=== PATIENT | male | born 1940 | race Caucasian/White ===

== ENCOUNTER 2016-07-08 06:50 | Day surgery (SDC) | payer MEDICARE, OTHER ==
[~2016-07-08 06:50] MED LIST: KETOROLAC TROMETHAMINE 0.45% 4 DROP/0.4 ML DROPERETTE OS PRN
[2016-07-08] MEDS: CYCLOPENTOLATE 0.2%/PHENYLEPHRINE 1% OPH SOLN 2 ML OS PRN ×3 (07:10→07:33)
[2016-07-08] MEDS: BESIFLOXACIN HCL 0.6% OPH SUSP 5 ML BOTTLE OS PRN ×3 (07:10→08:37)
[2016-07-08] MEDS: TROPICAMIDE 1% OPH SOLN 3 ML OS PRN ×3 (07:10→07:33)
[2016-07-08] MEDS: TETRACAINE HCL 0.5% OPH SOLN 2 ML OS PRN ×3 (07:10→08:08)
[2016-07-08] MEDS ORDERED: CHONDR SU A NA/HYALUR INTRAOC KIT (SURGICARE) ONE (07:14)
[2016-07-08] MEDS ORDERED: EPINEPHRINE INJ/PF 1 MG/1 ML AMPULE ONE (07:14)
[2016-07-08] MEDS ORDERED: LIDOCAINE 1% INJ-PF (10 MG/ML) 30 ML SDV ONE (07:14)
[2016-07-08] MEDS ORDERED: FENTANYL CITRATE INJ/PF 100 MCG/2 ML AMPUL ONE (07:18)
[2016-07-08] MEDS ORDERED: MIDAZOLAM 2 MG/2 ML INJ ONE ×2 (07:18→08:13)
--- NOTE | 2016-07-08 16:38 | [facility] OPERATIVE REPORT E ---
[facility] Oper[facility] Report NAME: BILL CARTER AGE: 75Y DATE OF SURGERY: 07/08/2016 ROOM: PREOPERATIVE DIAGNOSIS: CATARACT, LEFT EYE. POSTOPERATIVE DIAGNOSIS: CATARACT, LEFT EYE. OPERATION: Cataract extraction with insertion of a Toric intraocular lens implant of the left eye. SURGEON: CAROL PERRY M.D. ANESTHESIA: Topical. PROCEDURE: After obtaining appropriate consent, the patient's left eye was prepped and draped in sterile fashion as well as the surgeon in a sterile manner and cataract surgery was started. First a paracentesis blade was used to make a small side-port incision. Viscoelastic was used to inflate the anterior chamber. Next a 2.4 mm incision was made with the paracentesis blade. A continuous capsulorrhexis incision was made using a cystotome and Utrata forceps. Following this hydrodissection was carried out to make the lens fully loose and mobile and it was rotated 90 degrees. Following this, a bqpgdv-sov-jcqyszs technique was used to phacoemulsify the lens with a CDE of 29.98. The remaining cortex was removed with irrigation/aspiration. Provisc was instilled into the capsular bag to inflate the bag. A [id number], 22.0 diopter lens rotated to 180 [address] was [address]. The remaining viscoelastic material was removed with irrigation/aspiration. Following this, a 10-0 nylon suture was used to close the incision and it was found to be watertight. Vigamox was instilled in the eye and a protective shield was placed over the eye. The patient returned to the postoperative recovery in stable condition. DICTATING PHYSICIAN: CAROL PERRY M.D. [id number] PHY#: [id number] ID: [id number] JOB#: [id number] ACCT: [id number] cc:CAROL PERRY M.D. >
--- NOTE | 2016-07-08 16:39 | DISCHARGE SUMMARY E ---
Discharge Summary NAME: BILL CARTER : 1940 AGE: 75Y ADMITTED: 07/08/2016 DISCHARGED: 07/08/2016 This is a 75-year-old male who underwent cataract extraction of the left eye with insertion of a Toric intraocular lens at 180 degrees. DIAGNOSIS: Cataract, left eye. The patient underwent surgery because he having trouble seeing words on TV. DISCHARGE INSTRUCTIONS: He is to be on a regular diet. No bending at his waist, no heavy lifting. He is to use Besivance, Ilevro, and Durezol at 3:00 p.m. and 8:00 p.m., and sleep with a rigid shield. I will see him for his one day postoperative tomorrow. DICTATING PHYSICIAN: CAROL PERRY M.D. [id number] PHY#: [id number] ID: [id number] JOB#: [id number] ACCT: [id number] cc:CAROL PERRY M.D. >
== END 2016-07-08 09:25 | disposition home or self-care (01) ==
LOC: SC 06:50
PROVIDERS: ATTEND Internal Medicine
PROC: 08RK3JZ Replacement of Left Lens with Synthetic Substitute, Percutaneous Approach (ICD-10-PCS; principal; 2016-07-08 08:00)
DX: H25.13 Age-related nuclear cataract, bilateral (principal); H57.03 Miosis; H04.123 Dry eye syndrome of bilateral lacrimal glands; H02.032 Senile entropion of right lower eyelid; H43.813 Vitreous degeneration, bilateral; I10 Essential (primary) hypertension; Z87.891 Personal history of nicotine dependence; Z88.5 Allergy status to narcotic agent; Z79.899 Other long term (current) drug therapy; Z85.46 Personal history of malignant neoplasm of prostate
CPT/HCPCS: 66984; V2787; J2250; J3490 ×2; A9270; J0171; J3010; 142

== ENCOUNTER 2016-07-29 10:06 | Day surgery (SDC) | payer MEDICARE, OTHER ==
[~2016-07-29 10:06] MED LIST changes: +KETOROLAC TROMETHAMINE 0.45% 4 DROP/0.4 ML DROPERETTE OD PRN; -KETOROLAC TROMETHAMINE 0.45% 4 DROP/0.4 ML DROPERETTE OS PRN
[2016-07-29] MEDS ORDERED: PHENYLEPHRINE/KETOROLAC 1%-0.3% 4 ML VIAL ONE (10:51)
[2016-07-29] MEDS: TETRACAINE HCL 0.5% OPH SOLN 2 ML OD PRN ×3 (10:51→11:28)
[2016-07-29] MEDS ORDERED: LIDOCAINE 1% INJ-PF (10 MG/ML) 30 ML SDV ONE (10:51)
[2016-07-29] MEDS: TROPICAMIDE 1% OPH SOLN 3 ML OD PRN ×3 (10:52→11:13)
[2016-07-29] MEDS: CYCLOPENTOLATE 0.2%/PHENYLEPHRINE 1% OPH SOLN 2 ML OD PRN ×3 (10:52→11:14)
[2016-07-29] MEDS: BESIFLOXACIN HCL 0.6% OPH SUSP 5 ML BOTTLE OD PRN ×4 (10:53→12:02)
[2016-07-29] MEDS ORDERED: MIDAZOLAM 2 MG/2 ML INJ ONE ×2 (11:07→11:37)
[2016-07-29] MEDS ORDERED: FENTANYL CITRATE INJ/PF 100 MCG/2 ML AMPUL ONE (11:07)
[2016-07-29] MEDS: CHONDR SU A NA/HYALUR INTRAOC KIT (SURGICARE) ONE ×2 (11:51)
--- NOTE | 2016-07-29 19:48 | [facility] OPERATIVE REPORT E ---
[facility] NAME: BILL CARTER AGE: 75Y DATE OF SURGERY: 07/29/2016 ROOM: PREOPERATIVE DIAGNOSIS: CATARACT, RIGHT EYE. POSTOPERATIVE DIAGNOSIS: CATARACT, RIGHT EYE. OPERATION: Cataract extraction with insertion of a Toric intraocular lens implant of the right eye. SURGEON: CAROL PERRY M.D. ANESTHESIA: Topical. PROCEDURE: After obtaining appropriate consent, the patient's right eye was prepped and draped in sterile fashion as well as the surgeon in a sterile manner and cataract surgery was started. First a paracentesis blade was used to make a small side-port incision. Viscoelastic was used to inflate the anterior chamber. Next a 2.4 mm incision was made with the paracentesis blade. A continuous capsulorrhexis incision was made using a cystotome and Utrata forceps. Following this hydrodissection was carried out to make the lens fully loose and mobile and it was rotated 90 degrees. Following this, a mmvohi-ntv-ynalztm technique was used to phacoemulsify the lens with a CDE of 21.39. The remaining cortex was removed with irrigation/aspiration. Provisc was instilled into the capsular bag to inflate the bag. A SN6AT4, 21.0 diopter lens rotated to 9 [address] was [address]. The remaining viscoelastic material was removed with irrigation/aspiration. Following this, a 10-0 nylon suture was used to close the incision and it was found to be watertight. Vigamox was instilled in the eye and a protective shield was placed over the eye. The patient returned to the postoperative recovery in stable condition. DICTATING PHYSICIAN: CAROL PERRY M.D. [id number] 1941 PHY#: [id number] ID: [id number] JOB#: [id number] ACCT: [id number] cc:CAROL PERRY M.D. >
--- NOTE | 2016-07-29 19:49 | DISCHARGE SUMMARY E ---
Discharge Summary NAME: BILL CARTER : 1940 AGE: 75Y ADMITTED: 07/29/2016 DISCHARGED: 07/29/2016 This is a 75-year-old male who underwent cataract extraction of the right eye with insertion of a Toric intraocular lens. DIAGNOSIS: Cataract, right eye. He underwent surgery because he was having difficulty reading, driving, and watching TV. DISCHARGE INSTRUCTIONS: He is to be on a regular diet. No bending at his waist, no heavy lifting. He is to use Besivance, Ilevro, and Durezol at 3:00 p.m. and 8:00 p.m., and sleep with a rigid shield. I will see him for his one day postoperative tomorrow. DICTATING PHYSICIAN: CAROL PERRY M.D. [id number] 1943 PHY#: [id number] ID: [id number] JOB#: [id number] ACCT: [id number] cc:CAROL PERRY M.D. >
== END 2016-07-29 12:48 | disposition home or self-care (01) ==
LOC: SC 10:06
PROVIDERS: ATTEND Internal Medicine
PROC: 08RJ3JZ Replacement of Right Lens with Synthetic Substitute, Percutaneous Approach (ICD-10-PCS; principal; 2016-07-29 11:30)
DX: H25.11 Age-related nuclear cataract, right eye (principal); H57.03 Miosis; Z96.1 Presence of intraocular lens; I10 Essential (primary) hypertension; Z79.899 Other long term (current) drug therapy; Z88.5 Allergy status to narcotic agent
CPT/HCPCS: 66984; V2632; J2250; J3490 ×2; A9270; J3010; C9447; 142

== ENCOUNTER 2016-10-14 11:43 | Day surgery (SDC) | payer MEDICARE, OTHER ==
[~2016-10-14 11:43] MED LIST changes: +BESIFLOXACIN HCL 0.6% OPH SUSP 5 ML BOTTLE OS PRN; +CHONDR SU A NA/HYALUR INTRAOC KIT (SURGICARE) ONE; +CYCLOPENTOLATE 0.2%/PHENYLEPHRINE 1% OPH SOLN 2 ML OS PRN; +EPINEPHRINE INJ/PF 1 MG/1 ML AMPULE ONE; -KETOROLAC TROMETHAMINE 0.45% 4 DROP/0.4 ML DROPERETTE OD PRN; +KETOROLAC TROMETHAMINE 0.45% 4 DROP/0.4 ML DROPERETTE OS PRN; +LIDOCAINE 1% INJ-PF (10 MG/ML) 30 ML SDV ONE; +TETRACAINE HCL 0.5% OPH SOLN 2 ML OS PRN; +TROPICAMIDE 1% OPH SOLN 3 ML OS PRN
[2016-10-14] MEDS: CYCLOPENTOLATE 0.2%/PHENYLEPHRINE 1% OPH SOLN 2 ML OS PRN ×3 (11:58→12:18)
[2016-10-14] MEDS: BESIFLOXACIN HCL 0.6% OPH SUSP 5 ML BOTTLE OS PRN ×3 (11:58→12:56)
[2016-10-14] MEDS: TROPICAMIDE 1% OPH SOLN 3 ML OS PRN ×3 (11:58→12:18)
[2016-10-14] MEDS: TETRACAINE HCL 0.5% OPH SOLN 2 ML OS PRN ×3 (11:59→12:42)
[2016-10-14] MEDS ORDERED: MIDAZOLAM 2 MG/2 ML INJ ONE (12:19)
--- NOTE | 2016-10-14 20:47 | [facility] OPERATIVE REPORT E ---
[facility] Operative Report NAME: BILL CARTER AGE: 76Y DATE OF SURGERY: 10/14/2016 ROOM: PREOPERATIVE DIAGNOSIS: Retained lens fragment of left eye. POSTOPERATIVE DIAGNOSIS: Retained lens fragment of left eye. OPERATION: Removal of lens fragment of left eye. SURGEON: CAROL PERRY M.D. ANESTHESIA: Topical. BLOOD LOSS: Less than 2 mL. DESCRIPTION OF OPERATIVE REPORT: After obtaining appropriate informed consent, the left eye was prepped and draped in sterile fashion. Following this, a 1.2 mm keratome was used to make a paracentesis. Viscoelastic was inserted into the anterior chamber. A 2.4 mm keratome was used to reopen the temporal incision, being careful to follow the same tract. Following this, irrigation and aspiration were used to find the lens fragment that was in the inferior angle. This was removed with irrigation and aspiration. The remaining viscoelastic was then removed. The lens was still in excellent position, and the wound was Maycol negative. Besivance was instilled into the eye, and a rigid shield was placed over the eye. The patient woke up in postoperative recovery in stable condition. DICTATING PHYSICIAN: CAROL PERRY M.D. [id number] 1938 PHY#: [id number] ID: [id number] JOB#: [id number] ACCT: [id number] cc:CAROL PERRY M.D. >
--- NOTE | 2016-10-14 20:50 | DISCHARGE SUMMARY E ---
Discharge Summary NAME: BILL CARTER : 1940 AGE: 76Y ADMITTED: 10/14/2016 DISCHARGED: 10/14/2016 This is a 76-year-old male who had a retained lens fragment of the left eye. 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 DISCHARGE INSTRUCTIONS: He is to be on a regular diet. No bending at his waist, no heavy lifting. He is to use Besivance, Ilevro, and Durezol at 3:00 p.m. and 8:00 p.m., and sleep with a rigid shield. I will see him for his 1-day postoperative tomorrow. DICTATING PHYSICIAN: CAROL PERRY M.D. [id number] 1944 SAUNDRAY#: [id number] ID: [id number] JOB#: [id number] ACCT: [id number] cc:CAROL PERRY M.D. >
== END 2016-10-14 13:41 | disposition home or self-care (01) ==
LOC: SC 11:43
PROVIDERS: ATTEND Internal Medicine
PROC: 08DK3ZZ Extraction of Left Lens, Percutaneous Approach (ICD-10-PCS; principal; 2016-10-14 12:30)
DX: H59.022 Cataract (lens) fragments in eye following cataract surgery, left eye (principal); H20.012 Primary iridocyclitis, left eye; I10 Essential (primary) hypertension; Z87.891 Personal history of nicotine dependence; Z79.899 Other long term (current) drug therapy; Z88.5 Allergy status to narcotic agent; Z85.46 Personal history of malignant neoplasm of prostate; Z90.79 Acquired absence of other genital organ(s)
CPT/HCPCS: 66840; J2250; J3490 ×2; A9270; J0171; 142